=== PATIENT | female | born 1935 | race African-American/Black ===

== ENCOUNTER 2019-07-18 07:58 | Emergency (ER) | payer MEDICARE ==
[~2019-07-18] VITALS: Ht 172.7 cm; Wt 73.0 kg
[2019-07-18] MEDS ORDERED: HYDROCODONE/ACETAMINOPHEN 5/325MG TABLET PO ONE (08:45)
[2019-07-18 10:12] VITALS: BP 190/65
== END 2019-07-18 10:32 | disposition home or self-care (01) ==
LOC: ER 08:48
DX: S42.391A Other fracture of shaft of right humerus, initial encounter for closed fracture (principal); W18.39XA Other fall on same level, initial encounter; Y93.89 Activity, other specified; Y92.89 Other specified places as the place of occurrence of the external cause; Y99.8 Other external cause status; I10 Essential (primary) hypertension; Z98.890 Other specified postprocedural states
CPT/HCPCS: 73030; 99283